=== PATIENT | female | born 1980 | race Caucasian/White ===

== ENCOUNTER 2016-08-12 21:16 | Emergency (ER) | payer MEDICAID ==
[2009-12-19 12:20] VITALS: BMI 33.2
== END 2016-08-12 23:00 | disposition left against medical advice (07) ==
LOC: D.ER 21:16
DX: R05 Cough (principal)

== ENCOUNTER 2017-01-29 18:15 | Emergency (ER) | payer MEDICAID ==
[2009-12-19 12:20] VITALS: BMI 33.2
[2017-01-29 20:18] LABS: HCG URINE NEGATIVE (NEGATIVE)
== END 2017-01-29 21:41 | disposition home or self-care (01) ==
LOC: D.ER 18:15
PROVIDERS: Nurse Practitioner Family
DX: S16.1XXA Strain of muscle, fascia and tendon at neck level, initial encounter (principal); X58.XXXA Exposure to other specified factors, initial encounter; M25.50 Pain in unspecified joint; I10 Essential (primary) hypertension

== ENCOUNTER 2017-10-20 21:25 | Emergency (ER) | payer MEDICAID ==
[2009-12-19 12:20] VITALS: BMI 33.2
[2017-10-20 22:36] LABS: BASOPHILS 0.3 % (0-2); HEMATOCRIT 31.3 % (36.0-48.0); HEMOGLOBIN 9.7 g/dL (12-16); IMMATURE GRANULOCYTES 0.1 % (0-5); LYMPHOCYTES 18.2 % (15-50); MCH 25.1 pg (26.0-34.0); MCV 80.9 fL (80.0-100.0); MEAN PLATELET VOLUME 9.4 fL (7.4-10.4); MONOCYTES 5.9 % (2-11); NEUTROPHILS 74.5 % (40-80); RBC 3.87 10x6/uL (4.00-5.40); RDW 14.7 % (11.5-14.5); WBC 8.9 10x3/uL (4.8-10.8)
[2017-10-20 22:40] LABS: PLATELET COUNT 296 10x3/uL (130-400)
[2017-10-20 22:59] LABS: ALBUMIN 3.6 g/dL (3.4-5.0); ALKALINE PHOSPHATASE 90 U/L (46-116); ALT (SGPT) 15 U/L (10-68); BILIRUBIN - TOTAL 0.26 mg/dL (0.2-1.3); CALC OSMOLALITY 275 mosm/kg (275-300); CALCIUM 9.2 mg/dL (8.5-10.1); CARBON DIOXIDE 25.6 mmol/L (21.0-32.0); CHLORIDE - SERUM 104 mmol/L (98-107); CREATININE - SERUM 0.8 mg/dL (0.6-1.3); GLUCOSE 99 mg/dL (74-106); POTASSIUM - SERUM 3.5 mmol/L (3.5-5.1); PROTEIN - SERUM 7.8 g/dL (6.4-8.2); SODIUM 138 mmol/L (136-145); UREA NITROGEN 13 mg/dL (7-18); eGFR NON AFRICAN AMERICAN 86 mL/min (90-120)
[2017-10-20 23:10] LABS: CHOL - HDL RATIO 4.4 ratio (2.3-4.1); CHOLESTEROL, TOTAL 199 mg/dL (0-200); CKMB 0.6 U/L (0.0-3.6); CREATINE KINASE 76 UL (21-215); HDL CHOLESTEROL 45 mg/dL (32-96); LDL CHOLESTEROL 111 mg/dL (0-100); LDL-HDL RATIO 2.5 ratio (1.5-3.5); TRIGLYCERIDE 219 mg/dL (30-200); TROPONIN-I < 0.017 ng/mL (0.000-0.060)
== END 2017-10-21 04:09 | disposition home or self-care (01) ==
LOC: D.ER 21:25
PROVIDERS: Emergency Medicine
DX: J20.9 Acute bronchitis, unspecified (principal); R07.89 Other chest pain; I10 Essential (primary) hypertension; F17.200 Nicotine dependence, unspecified, uncomplicated

== ENCOUNTER → 2018-02-07 14:16 | Outpatient (CLI) | payer MEDICAID ==
[2009-12-19 12:20] VITALS: BMI 33.2
== END | disposition home or self-care (01) ==
LOC: D.MRI 14:16
DX: M54.5 Low back pain (principal)

== ENCOUNTER 2019-08-09 00:59 | Emergency (ER) | payer MEDICAID ==
[~2019-08-09] VITALS: Ht 165.1 cm; Wt 84.1 kg
[2019-08-09 01:04] VITALS: Ht 165.1 cm; Wt 84.1 kg
[2019-08-09 01:12] LABS: BASOPHILS 0.3 % (0-2); EOSINOPHILS 0.1 % (0-7); HEMATOCRIT 37.2 % (36.0-48.0); HEMOGLOBIN 12.1 g/dL (12-16); IMMATURE GRANULOCYTES 0.3 % (0-5); LYMPHOCYTES 16.7 % (15-50); MCHC 32.5 g/dL (31.0-37.0); MCV 92.3 fL (80.0-100.0); MEAN PLATELET VOLUME 9.9 fL (7.4-10.4); MONOCYTES 8.6 % (2-11); PLATELET COUNT 362 10x3/uL (130-400); RBC 4.03 10x6/uL (4.00-5.40); RDW 15.2 % (11.5-14.5); WBC 11.4 10x3/uL (4.8-10.8)
[2019-08-09 01:21] LABS: CALC OSMOLALITY 286 mosm/kg (275-300); CALCIUM 8.8 mg/dL (8.5-10.1); CARBON DIOXIDE 26.2 mmol/L (21.0-32.0); CHLORIDE - SERUM 105 mmol/L (98-107); CREATININE - SERUM 1.1 mg/dL (0.6-1.3); GLUCOSE 119 mg/dL (74-106); POTASSIUM - SERUM 3.9 mmol/L (3.5-5.1); SODIUM 142 mmol/L (136-145); UREA NITROGEN 20 mg/dL (7-18); eGFR NON AFRICAN AMERICAN 59 mL/min (90-120)
[2019-08-09 01:30] LABS: ALKALINE PHOSPHATASE 77 U/L (46-116); ALT (SGPT) 18 U/L (10-68); BILIRUBIN - TOTAL 0.28 mg/dL (0.2-1.3); LIPASE 85 U/L (73-393); PROTEIN - SERUM 7.6 g/dL (6.4-8.2); TROPONIN-I < 0.017 ng/mL (0.000-0.060)
[2019-08-09 02:14] VITALS: BP 135/92
== END 2019-08-09 02:19 | disposition home or self-care (01) ==
LOC: D.ER 00:59
PROVIDERS: Family Medicine
DX: R07.89 Other chest pain (principal); I10 Essential (primary) hypertension

== ENCOUNTER 2019-09-24 23:08 | Emergency (ER) | payer MEDICAID ==
[~2019-09-24] VITALS: Ht 165.1 cm; Wt 86.4 kg
[~2019-09-24 23:08] MED LIST: ANDROGEL5 GM TP; AUGMENTIN 875-11 TAB PO; BACLOFEN20 M1 PO; BUTALB-APAP-CA1 EACH PO; CATAPRES0.1 MG PO; COLACE100 MG PO; COZAAR100 MG PO; HYDROCODON-ACE1 EA10 PO; HYDROCODON-ACE1 EAC7 PO; MOBIC7.5 MG PO; OMEPRAZOLE20 M1 PO; PRAVACHOL40 MG PO; XANAX1 MG PO; ZOVIRAX200 MG PO
[2019-09-24 23:25] VITALS: Ht 165.1 cm; Wt 86.4 kg
[2019-09-24] MEDS ORDERED: CLEOCIN HCL300 MG PO (23:28)
[2019-09-24] MEDS ORDERED: PROAIR HFA8.5 G1 INH (23:28)
[2019-09-25 02:21] VITALS: BP 130/86
== END 2019-09-25 02:21 | disposition home or self-care (01) ==
LOC: D.ER 23:08
DX: R10.9 Unspecified abdominal pain (principal); Z98.890 Other specified postprocedural states; I10 Essential (primary) hypertension; J45.909 Unspecified asthma, uncomplicated; K21.9 Gastro-esophageal reflux disease without esophagitis; Z72.0 Tobacco use

== ENCOUNTER 2020-05-03 01:33 | Emergency (ER) | payer MEDICAID ==
[~2020-05-03] VITALS: Ht 165.1 cm; Wt 83.9 kg
[~2020-05-03 01:33] MED LIST changes: +CLEOCIN HCL300 MG PO; +PROAIR HFA8.5 G1 INH
[2020-05-03 01:39] VITALS: Ht 165.1 cm; Wt 83.9 kg
[2020-05-03] MEDS ORDERED: BACTRIM DS TAB1 EAC1 PO (02:00)
[2020-05-03 02:20] VITALS: BP 133/78
== END 2020-05-03 05:52 | disposition home or self-care (01) ==
LOC: D.ER 01:33
DX: Z20.2 Contact with and (suspected) exposure to infections with a predominantly sexual mode of transmission (principal); M25.572 Pain in left ankle and joints of left foot; G89.29 Other chronic pain; I10 Essential (primary) hypertension; J45.909 Unspecified asthma, uncomplicated; K21.9 Gastro-esophageal reflux disease without esophagitis; Z72.0 Tobacco use